=== PATIENT | female | born 2000 | race Hispanic/Latino ===

== ENCOUNTER 2024-04-01 21:54 | Emergency (ER) | payer OTHER, SELFPAY ==
--- OUTSIDE RECORDS SUMMARY | 2024-04-01 21:58 | XMS REPORT | Continuity of Care Document ---
Author Name Unknown Address [address] [facility] [address] [place] [address] [facility] Address [address] [facility] [address] [place] [address] Care Team Providers Care Grinder Set Up Operator Centerless Name Role Phone ROXANA CABRERA Primary Care Physician Unavailab CONG Loo Attending Clinician Unavailable ROXANA CABRERA Attending Clinician Unavailable SHANNAN SCHULTZ Attending Clinician Unavailable CORRINE STUBBS Attending Clinician Unavail able AKHIL WELCH Attending Clinician Unava ilCAROL ANN Thomas Attending Clinician Unavaila RIVAS Cleary Attending Clinician CONG WINTERS Admitting Clinician Unavailable ROXANA CABRERA Admitting Clinician Unavailable CAROL ANN SHARMA Admitting Clinician Unavaila ble Payers Payer Name Policy Type Policy Number Effective Date Expirati on Date Source Medicaid Traditional D [id number] 2021 00:00:00 2 W [id number] BCBS-OON 4 [id number] 2021 00:00:00 2 B [id number] 26 C NONE MEDICAID PENDING NA [facility] MEDICAID - HMO NA [facility] JIGNA CARE PENDING NA [facility] Problems Condition Name Condition Details Condition Category Status Onset Date Resolution Date Last Treatment Date Treating Clinician Comments Source Foreign body of right ear Foreign body in right ear Problem [facility] Viral infection Viral syndrome Problem Active [facility] Generalize d pain Body aches Problem Active [facility] Allergies, Adverse Reactions, Alerts Allergy Name Allergy Type Status Severity Reaction(s) Onset Date Inactive Date Treating Clinician Comments Source Penicill ins Drug Allergy Active U Not Specified 04-16 12:13: 27 [facility] Penicill ins Drug Allergy Active U Not Specified 06-14 11:30: 52 [facility] No Known Allergie s NA Active 06-14 11:26: 51 [facility] Penicill ins Allergy to substanc e Active 02-26 00:00: 00 [facility] Social History Social Habit Start Date Stop Date Quantity Comments Source Sex Assigned At 2000 00:00:00 2000 00:00:00 Female [facility] Medications Ordered Medication Name Filled Medication Name Start Date Stop Date Current Medication? Ordering Clinician Indication Dosage Frequency Signature (SIG) Comments Components Source Tramadol Hcl ([id number] MG) 50 MG TAB Tramadol Hcl ([id number] MG) 50 MG TAB 02-26 19:25: 00 Yes 50 Q4HRS PRN PAIN [facility] Vital Signs Vital Name Observation Time Observation Value Comments S ource DBP 2023-04-16 13:38:00 95 mm[Hg] DBP 2023-04-16 13:08:00 94 mm[Hg] DBP 2023-04-16 12:21:00 128 mm[Hg] DBP 2023-04-16 12:13:00 123 mm[Hg] Procedures Procedure Date / Time Performed Performing Clinician Source UA COMPLETE W/CULTURE REFLEX 2019-09-20 00:00:00 [facility] URINE QUALITATIVE HCG 2019-09-20 00:00:00 [facility] CBCA W/PLT & AUTO DIFFERENTIAL 2019-09-20 00:00:00 [facility] COMPREHENSIVE METABOLIC PANEL 2019-09-20 00:00:00 [facility] LIPASE 2019-09-20 00:00:00 [facility] URINE CULTURE 2019-09-20 00:00:00 [facility] LACTIC ACID 2019-09-20 00:00:00 [facility] CT ABD & PELVIS WO CONTRAST 2019-09-20 00:00:00 [facility] Encounters Start Date/Time End Date/Time Encounter Type Admission Type Attending [facility] Care Facility Care Department Encounter ID Source 2022-02-17 18:27:23 Inpatient CONG WINTERS TW TW [id number] T 2022-01-31 18:49:07 [facility] [id number] [facility] 2022-01-02 08:46:09 [facility] [id number] [facility] 2021-12-26 14:07:42 Outpatient [facility] [id number] [facility] 2023-04-16 17:02:00 2023-04-16 20:31:00 Emergency Department Patient Visit [facility] [id number] [id number] 12:02:00 2023-04-16 15:31:00 Emergency 1 ROXANA CABRERA [facility] [id number] 2022-03-11 13:23:00 2022-03-11 13:23:00 Emergency E SHANNAN SCHULTZ TW TW [id number] TW 2022-02-28 15:51:00 2022-03-01 12:00:00 Outpatient CONG WINTERS [facility] TW [id number] TW 2022-02-26 22:37:00 2022-02-27 00:29:00 Emergency E SHANNAN SCHULTZ [facility] TW [id number] MHTW 2022-02-17 20:17:00 2022-02-18 18:00:00 Outpatient E CONG WINTERS MHTW MHTW [id number] MHTW 2021-12-27 15:40:00 2021-12-27 15:40:00 Outpatient CORRINE STUBBS [id number] [facility] 2021-12-26 00:00:00 2021-12-26 00:00:00 Outpatient AKHIL WELCH SERENE [id number] [facility] 2021-10-23 14:07:00 2021-10-23 14:07:00 Outpatient En[facility] [id number] [facility] 2021-10-23 08:07:00 2021-10-23 08:07:00 Outpatient 3 CAROL ANN SHARMA [facility] [id number] [facility] 2021-06-14 11:26:00 2021-06-14 15:04:00 Emergency 1 ROXANA CABRERA [facility] [id number] [facility] 2020-06-23 09:25:00 2020-06-23 11:45:00 Departed Emergency [facility] [id number] [facility] 2019-09-20 16:54:00 2019-09-20 22:26:00 Departed Emergency [facility] [id number] [facility] 2018-12-31 13:08:00 2018-12-31 14:40:00 Departed Emergency [facility] [id number] Results Test Description Test Time Test Comments Results Result Co mments Source [facility] HospitalWhite Blood [id number] 18:06:00* Test Item Value Reference Range Interpretation Comme nts White Blood Count (test code = 6690-2) 13.2 4.1-12.9 [facility] HospitalRed Blood [id number] 18:06:00* Test Item Value Reference Range Interpretation Comme nts Red Blood Count (test code = 789-8) 5.15 3.64-5.20 [facility] HospitalHemoglobin2019-11-12 18:06:00* Test Item Value Reference Range Interpretation Comme nts Hemoglobin (test code = 718-7) 14.7 10.6-15.6 [facility] HospitalHematocrit2019-11-12 18:06:00* Test Item Value Reference Range Interpretation Comme [facility] Hematocrit (test code = 44953-5) 43.9 32.0-45.9 [facility] Corpuscular [id number] 18:06:00* Test Item Value Reference Range Interpretation Comme [facility] Mean Corpuscular Volume (kya t code = 46441-2) 85.3 74.6-98.2 [facility] Corpuscular [id number] 18:06:00* Test Item Value Reference Range Interpretation Comme [facility] Mean Corpuscular Hemoglobin (test code = 32893-3) 28.6 24.3-33.8 [facility] Corpuscular Hgb Concent [id number] 18:06:00 * Test Item Value Reference Range Interpretation Comme [facility] Mean Corpuscular Hgb Concent Diff (test code = 47430-5) 33.6 32.0-36.0 [facility] HospitalRed Cell Distribution [id number] 18:06:00* Test Item Value Reference Range Interpretation Comme [facility] Red Cell Distribution Width (test code = 60672-5) 13.5 11.4-16.3 [facility] HospitalPlatelet [id number] 18:06:00* Test Item Value Reference Range Interpretation Comme [facility] Platelet Count (test code = 777-3) 374 168-441 [facility] Platelet Fnjsbd8323-09-24 18:06:00* Test Item Value Reference Range Interpretation Comme [facility] Mean Platelet Volume (test c ode = 47512-8) 7.9 6.8-10.2 [facility] HospitalGranulocytes (%)2019-09-20 18:06:00* Test Item Value Reference Range Interpretation Comme [facility] Granulocytes (%) (test code = 69826-2) 85.8 39.8-78. 1 [facility] HospitalLymphocytes %2019-09-20 18:06:00* Test Item Value Reference Range Interpretation Comme [facility] Lymphocytes % (test code = 736-9) 9.4 14.1-47.6 [facility] HospitalMonocytes %2019-09-20 18:06:00* Test Item Value Reference Range Interpretation Comme nts Monocytes % (test code = 5905-5) 4.4 3.8-11.6 [facility] HospitalEosinophils %2019-09-20 18:06:00* Test Item Value Reference Range Interpretation Comme nts Eosinophils % (test code = 713-8) 0.2 0.6-7.3 [facility] HospitalBasophils %2019-09-20 18:06:00* Test Item Value Reference Range Interpretation Comme nts Basophils % (test code = 44101-8) 0.2 0.0-2.0 [facility] HospitalGranulocytes #2019-09-20 18:06:00* Test Item Value Reference Range Interpretation Comme nts Granulocytes # (test code = 98195-2) 11.4 1.6-10.1 [facility] HospitalLymphocytes #2019-09-20 18:06:00* Test Item Value Reference Range Interpretation Comme nts Lymphocytes # (test code = 12754-1) 1.2 0.6-6.1 [facility] HospitalMonocytes #2019-09-20 18:06:00* Test Item Value Reference Range Interpretation Comme nts Monocytes # (test code = 742-7) 0.6 0.2-1.5 [facility] #2019-09-20 18:06:00* Test Item Value Reference Range Interpretation Comme nts Eosinophils # (test code = 711-2) 0.0 0.0-0.9 [facility] HospitalBasophils #2019-09-20 18:06:00* Test Item Value Reference Range Interpretation Comme nts Basophils # (test code = 61165-2) 0.0 0.0-0.2 [facility] HospitalManual Pfrmcmpzmbow2405-56-40 18:06:00* Test Item Value Reference Range Interpretation Comme nts Manual Differential (test co de = Manual Differential) NO [facility] Hospitalodium [id number] 18:06:00* Test Item Value Reference Range Interpretation Comme nts Sodium Level (test code = 2951-2) 136 135-144 [facility] Hospitalassium [id number] 18:06:00* Test Item Value Reference Range Interpretation Comme [facility] Potassium Level (test code = 2823-3) 3.8 3.5-5.1 [facility] HospitalChloride [id number] 18:06:00* Test Item Value Reference Range Interpretation Comme nts Chloride Level (test code = 2075-0) 99 101-111 [facility] HospitalCarbon Dioxide [id number] 18:06:00* Test Item Value Reference Range Interpretation Comme [facility] Carbon Dioxide Level (test c ode = 8-9) 27 22-32 [facility] HospitalAnion [id number] 18:06:00* Test Item Value Reference Range Interpretation Comme [facility] Anion Gap (test code = 41836-1) 13.8 10-20 [facility] HospitalGlucose Bemum6057-45-22 18:06:00* Test Item Value Reference Range Interpretation Comme [facility] Glucose Level (test code = 2345-7) 103 65-99 Prediabetes 100 to 125 mg/dlDiabetes 126 mg/dl or higher Prediabetes refers to individuals with plasma glucose levelsintermediate between those considered normal and thoseconsidered diabetic and is also referred to as impairedglucose tolerance (IGT) or impaired fasting glucose (IFG). [facility] HospitalBlood Urea Nscnczgu8468-88-58 18:06:00* Test Item Value Reference Range Interpretation Comme [facility] Blood Urea Nitrogen (test co de = 3094-0) 11 07-04 [facility] HospitalCreatinine2019-11-12 18:06:00* Test Item Value Reference Range Interpretation Comme [facility] Creatinine (test code = 2160-0) 0.7 0.44-1.00 [facility] HospitalEGFR [id number] 18:06:00* Test Item Value Reference Range Interpretation Comme nts EGFR Note (test code = 59395-7) 123.6 63.8-143.2 eGFR (Estimated Glomerular Filtration Rate) eGFR calculation value obtained using the [facility] Health Doctors HospitalQuadratic (MCQ) equation. The reportable reference range isrecommended to be greater than 60 ml/min/1.73m. This is anestimation of the patient's GFR and clinical correlation isrecommended. This eGFR calculation does not account for race. This resultmay differ from other equations available. [facility] HospitalCalcium Exwuf7889-72-57 18:06:00* Test Item Value Reference Range Interpretation Comme [facility] Calcium Level (test code = 16860-3) 9.2 8.9-10.3 [facility] HospitalAlbumin2019-11-12 18:06:00* Test Item Value Reference Range Interpretation Comme [facility] Albumin (test code = 1751-7) 4.2 3.5-5.0 [facility] HospitalTotal Nwoptmtat4685-11-10 18:06:00* Test Item Value Reference Range Interpretation Comme [facility] Total Bilirubin (test code = 1975-2) 0.6 0.2-1.2 [facility] HospitalAlkaline Xppvfdgtwng8824-09-01 18:06:00* Test Item Value Reference Range Interpretation Comme nts Alkaline Phosphatase (test c ode = 6768-6) 72 32-91 [facility] HospitalTotal Emuscuz7636-02-42 18:06:00* Test Item Value Reference Range Interpretation Comme [facility] Total Protein (test code = 2885-2) 8.3 6.5-8.1 [facility] Sp[facility] HospitalAlanine Aminotransferase (ALT/SGPT)2019-09-20 18:06:00* Test Item Value Reference Range Interpretation Comme [facility] Alanine Aminotransferase (AL T/SGPT) (test code = 1742-6) 16 7-55 [facility] Sp[facility] HospitalAspartate Amino Transf (AST/SGOT)2019-09-20 18:06:00 * Test Item Value Reference Range Interpretation Comme nts Aspartate Amino Transf (AST/ SGOT) (test code = 1920-8) 15 15-41 [facility] HospitalGlobulin2019-11-12 18:06:00* Test Item Value Reference Range Interpretation Comme nts Globulin (test code = 33102-4) 4.1 2.3-3.5 [facility] HospitalAlbumin/Globulin [id number] 18:06:00* Test Item Value Reference Range Interpretation Comme nts Albumin/Globulin Ratio (test code = 1759-0) 1.0 1.2-2.2 [facility] HospitalLipase2019-11-12 18:06:00* Test Item Value Reference Range Interpretation Comme nts Lipase (test code = 3040-3) 21 22-51 [facility] HospitalUrine Abzjzee4880-06-45 18:04:00* Test Item Value Reference Range Interpretation Comme nts Urine Culture (test code = 630-4) ESCHERICHIA COLI [facility] HCG, Zwnotgafzep6336-07-58 17:26:00* Test Item Value Reference Range Interpretation Comme [facility] Urine HCG, Qualitative (test code = 2106-3) NEGATIVE NEGATIVE If a negative result is obtained but issuspected, hCG levels may be too low or urine may be toodilute for detection. Another specimen should be collectedafter 48-72 hours and tested. If waiting is not medicallyadvisable, the test result should be confirmed with aquantitative hCG test.[facility] Kzhne4720-92-28 17:26:00* Test Item Value Reference Range Interpretation Comme [facility] Urine Color (test code = 26633-1) Tanya YELLOW Substances that cause abnormal urine color may affect thereadability of test pads on urinalysis reagent strips. Thesesubstances include visible levels of blood or bilirubin anddrugs containing dyes (e.g., Pyridium, Azo Gantrisin, AzoGantanol), nitrofurantion (Macrodantin, Furadantin), orriboflavin.[facility] HospitalUrine [id number] 17:26:00* Test Item Value Reference Range Interpretation Comme [facility] Urine Clarity (test code = 29551-9) Slightly cloudy CLEAR [facility] Qkpmlxu7799-20-51 17:26:00* Test Item Value Reference Range Interpretation Comme [facility] Urine Glucose (test code = 5792-7) NEGATIVE NEGATIVE [facility] Tjcqryqwx2228-04-79 17:26:00* Test Item Value Reference Range Interpretation Comme nts Urine Bilirubin (test code = 5770-3) NEGATIVE NEGATIVE [facility] Vauyisb5364-89-19 17:26:00* Test Item Value Reference Range Interpretation Comme nts Urine Ketones (test code = 5797-6) 20 NEGATIVE [facility] Specific [id number] 17:26:00* Test Item Value Reference Range Interpretation Comme nts Urine Specific [place] (test code = 5811-5) 1.023 1.002-1.030 [facility] [id number] 17:26:00* Test Item Value Reference Range Interpretation Comme nts Urine Blood (test code = 37483-7) SMALL NEGATIVE [facility] [id number] 17:26:00* Test Item Value Reference Range Interpretation Comme nts Urine pH (test code = 5803-2) 6 5.0-8.0 [facility] Bbrklmq2026-79-59 17:26:00* Test Item Value Reference Range Interpretation Comme nts Urine Protein (test code = 5804-0) 30 NEGATIVE [facility] Wzrthvshuidj2254-94-05 17:26:00* Test Item Value Reference Range Interpretation Comme nts Urine Urobilinogen (test cod e = 20340-2) NEGATIVE NEGATIVE [facility] Rddgljl0047-96-39 17:26:00* Test Item Value Reference Range Interpretation Comme nts Urine Nitrite (test code = 5802-4) POSITIVE NEGATIVE [facility] Leukocyte Jmyyftau3767-58-69 17:26:00* Test Item Value Reference Range Interpretation Comme nts Urine Leukocyte Esterase (te st code = 72925-1) 25 NEGATIVE [facility] [id number] 17:26:00* Test Item Value Reference Range Interpretation Comme nts Urine RBC (test code = 57121-5) 6-14 0-2 [facility] [id number] 17:26:00* Test Item Value Reference Range Interpretation Comme nts Urine WBC (test code = 80474-6) 15-30 0-5 "Urine Culture test was reflexed and added to this specimen"[facility] Squamous Epithelial [id number] 17:26:00* Test Item Value Reference Range Interpretation Comme nts Urine Squamous Epithelial Ce lls (test code = 18166-8) 6-14 0-5 [facility] HospitalUrine [id number] 17:26:00* Test Item Value Reference Range Interpretation Comme nts Urine Bacteria (test code = 31224-9) 3+ NEGATIVE "Urine Culture test was reflexed and added to this specimen"[facility] HospitalUrine [id number] 17:26:00* Test Item Value Reference Range Interpretation Comme nts Urine Mucus (test code = 60054-4) MANY NEGATIVE [facility]
[2024-04-01] MEDS ORDERED: HYDRALAZINE HCL 20 MG/ML VIAL ONE (23:58)
[2024-04-01 23:59] LABS: Absolute Basophils 0.1 K/uL (0-0.5); Absolute Eosinophils 0.1 K/uL (0-0.5); Absolute Lymphocytes (CBC) 3.4 K/uL (0.7-4.9); Absolute Monocytes 0.5 K/uL (0.1-1.3); Absolute Neutrophil 9.6 K/uL (1.8-8.0); Basophils % 0.8 % (0-1.3); Eosinophils % 0.6 % (0-4.4); Hematocrit 40.3 % (36.0-45.0); Hemoglobin 13.2 g/dL (12.0-15.0); Lymphocytes % 24.8 % (15.3-44.8); MCH 26.7 pg (27.0-35.0); MCHC 32.8 g/dL (32.0-36.0); MCV 81.4 fL (80-100); MPV 7.7 fL (7.6-11.3); Monocytes % 3.7 % (3.3-12.3); Neutrophils % 70.1 % (41.7-73.7); Platelets 367 thou/uL (152-406); RBC Red Blood Cell Count 4.95 M/uL (3.86-4.86); Red Cell Distribution Width 14.4 % (12.1-15.2)
[2024-04-02 00:06] LABS: Specific Gravity 1.028 (1.005-1.030); Urine Bacteria <20 /HPF (<20); Urine Bilirubin NEGATIVE (Negative); Urine Blood 1+ (Negative); Urine Clarity Extremely Turbid (Clear); Urine Color Light-Yellow (Yellow); Urine Culture Reflex Order NOT NEEDED; Urine Glucose NEGATIVE (Negative); Urine Ketones NEGATIVE (Negative); Urine Microscopic Reflex YN ORDER UMIC; Urine Mucus Slight /HPF (None Seen); Urine Nitrite NEGATIVE (Negative); Urine Protein TRACE (Negative); Urine Urobilinogen Normal (Normal); Urine pH 5.5 (5.0-7.0)
[2024-04-02 00:11] LABS: Specific Gravity 1.028 (1.005-1.030)
[2024-04-02 00:25] LABS: Anion Gap 9.9 mEq/L (5.0-15.0); Potassium 3.9 mEq/L (3.5-5.1); Troponin High Sensitivity 4.6 pg/mL (<58.9)
--- NOTE | 2024-04-02 00:47 | EDPHYS ---
Physician Documentation [facility] Name: Val Nuñez Age: 23 yrs Sex: Female : 2000 Arrival Date: 04/01/2024 Time: 21:54 Bed 14 Private MD: ED Physician Vika Miles HPI: 04/01 22:00 This 23 yrs old Female presents to ER via Unassigned with complaints of Chest kb Pain. 22:00 Pt reports chest pain to center upper chest that started 1 hour ago. States she had kb similar pain yesterday that went away. Reports shortness of breath. Denies abnormal nausea, vomiting. States she is 5-6 weeks so she has had nausea and vomiting related to that. . Historical: - Allergies: 22:06 PENICILLINS; kb - PMHx: 22:06 Hypertensive disorder; kb - Immunization history:: Adult Immunizations up to date. - Infectious Disease History:: Denies. - Social history:: Smoking status: Patient denies any tobacco usage or history of. ROS: 22:00 Constitutional: As per HPI kb Exam: 22:02 Constitutional: This is a well developed, well nourished patient who is awake, alert, kb and in no acute distress. Head/Face: Normocephalic, atraumatic. ENT: Moist Mucous membranes Cardiovascular: Regular rate Respiratory: Respirations even and unlabored. No increased work of breathing. Talking in full sentences Abdomen/GI: Soft, non-tender. No distention Skin: Warm, dry with normal turgor. Normal color. MS/ Extremity: Pulses equal, no cyanosis. Neurovascular intact. Full, normal range of motion. Neuro: Awake and alert, GCS 15, oriented to person, place, time, and situation. Moves all extremities. Normal gait. 04/02 00:06 ECG was reviewed by the Attending Physician. kb Vital Signs: 04/01 22:06 BP 149 / 104; Pulse 87; Resp 18; Pulse Ox 100% ; Weight 117.93 kg; Height 5 ft. 6 in. ; kb Pain 6/10; 22:34 Pain 5/10; cm10 04/02 00:05 BP 139 / 91; Pulse 80; Resp 16; Pulse Ox 99% on R/A; pf1 00:35 BP 113 / 65; Pulse 76; Resp 16; Temp 97.3; Pulse Ox 100% on R/A; Pain 3/10; pf1 04/01 22:06 Body Mass Index 41.96 (117.93 kg, 167.64 cm) 04/01 22:06 Pain Scale: Adult kb 22:34 Pain Scale: Adult cm10 00:35 Pain Scale: Adult pf1 MDM: 04/01 21:59 Patient medically screened. kb 22:02 Data reviewed: vital signs, nurses notes. kb 22:03 Differential diagnosis: acute [place], arrhythmia, GERD. 04/02 00:45 Management of patient was discussed with the following: Dr Miles. Counseling: I had a kb detailed discussion with the patient and/or guardian regarding the historical points, exam findings, and any diagnostic results supporting the discharge/admit diagnosis, lab results, radiology results, the need for outpatient follow up, an OB/Gyne specialist, to return to the emergency department if symptoms worsen or persist or if there are any questions or concerns that arise at home. ED course: Pt educated on importance of follow up with OB as soon as possible. Pt states she will call to schedule an appt next week. 04/01 22:04 Order name: Basic Metabolic Panel; Complete Time: 00:26 kb 04/01 22:04 Order name: CBC with Diff; Complete Time: 00:00 kb 04/01 22:04 Order name: Magnesium; Complete Time: 00: kb 04/01 22:04 Order name: NT PRO-BNP; Complete Time: 00:26 kb 04/01 22:04 Order name: Troponin HS; Complete Time: 00:26 kb 04/01 22:04 Order name: Urinalysis w/ reflexes; Complete Time: 00:21 kb 04/01 23:50 Order name: Test, Urine; Complete Time: 00:21 kb 04/01 22:04 Order name: XRAY Chest (1 view) 04/01 22:04 Order name: Cardiac monitoring; Complete Time: 23:53 kb 04/01 22:04 Order name: EKG - Nurse/Tech; Complete Time: 23:50 kb 04/01 22:04 Order name: IV Saline Lock; Complete Time: 23:50 kb 04/01 22:04 Order name: Labs collected and sent; Complete Time: 23:50 kb 04/01 22:04 Order name: O2 Per Protocol; Complete Time: 23:50 kb 04/01 22:04 Order name: O2 Sat Monitoring; Complete Time: 23:50 kb 04/02 00:00 Order name: Vital Signs; Complete Time: 00:04 kb EC:06 Rate is 82 beats/min. Rhythm is regular. QRS [place] is Normal. CO interval is normal at kb 146 msec. QRS interval is normal at 88 msec. QT interval is normal at 443 msec. Administered Medications: 00:52 CANCELLED (Inappropriate at this time): [id number] mg IVP once pf1 Disposition Summary: 04/02/24 00:47 Discharge Ordered Notes: Location: Home kb Condition: Stable kb Diagnosis - Chest pain, unspecified kb - Essential (primary) hypertension kb Followup: kb - With: Emergency Department - When: As needed - Reason: Worsening of condition Followup: kb - With: Private Physician - When: 2 - 3 days - Reason: Recheck today's complaints, Continuance of care, Re-evaluation by your physician Discharge Instructions: - Discharge Summary Sheet kb - Nonspecific Chest Pain, Adult, [id number] kb - Hypertension, Adult, Chlx-po-Yfts kb - Hypertension During , [id number] kb Forms: - Medication Reconciliation Form kb - Antibiotic Education kb - Prescription Opioid Use kb - Patient Portal Instructions kb - Leadership Thank You Letter kb Signatures: Dispatcher [employer] EDNY Cecille oCronado, REGIONAL CONTROLLER-C REGIONAL CONTROLLER-Fide [place], RN RN pf1 Karina Witt RN RN cm10 Corrections: (The following items were deleted from the chart) 04/01 22:06 22:06 Chest Single View+RAD.RAD.BRZ ordered. EDNY EDMS 22:07 22:07 Urinalysis+U.LAB.BRZ ordered. EDNY EDMS 22:08 22:06 Pulse 87bpm; Resp 18bpm; Pulse Ox 100%; 117.93 kg; Height 5 ft. 6 in.; BMI: 41.9; kb Pain 6/10, Adult; kb 23:50 23:50 Test, Urine+UC.LAB.BRZ ordered. EDNY EDMS 04/02 00:52 04/01 23:50 hydrALAZINE IVP 10 mg IVP once ordered. kb pf1 04/02 00:52 00:52 hydrALAZINE IVP 10 mg IVP once ordered. pf1 pf1
--- NOTE | 2024-04-02 00:47 | ER ---
Nurse's Notes [facility] Name: Val Nuñez Age: 23 yrs Sex: Female : 2000 Arrival Date: 04/01/2024 Time: 21:54 Bed 14 Private MD: Diagnosis: Chest pain, unspecified;Essential (primary) hypertension Presentation: 04/01 22:34 Chief complaint: Patient states: Chest pain onset yesterday, got worse 1hr ago. Pt cm10 states that the pain is to the center of her chest and describes it as someone sitting on her chest. Pain does not radiate. Coronavirus screen: Client denies travel out of the [place] in the last 14 days. At this time, the client does not indicate any symptoms associated with coronavirus-19. Ebola Screen: Patient denies travel to an Ebola-affected area in the 21 days before illness onset. No symptoms or risks identified at this time. Initial Sepsis Screen: Does the patient meet any 2 criteria? No. Patient's initial sepsis screen is negative. Does the patient have a suspected source of infection? No. Patient's initial sepsis screen is negative. Risk Assessment: Do you want to hurt yourself or someone else? Patient reports no desire to harm self or others. Onset of symptoms was March 31, 2024. 22:34 Method Of Arrival: Ambulatory cm10 22:34 Acuity: JHON 3 cm10 Triage Assessment: 22:36 General: Appears in no apparent distress. comfortable, Behavior is calm, cooperative. cm10 Pain: Complains of pain in chest Pain currently is 5 out of 10 on a pain scale. Quality of pain is described as heavy, pressure, Pain began 1 day ago. Neuro: No deficits noted. Level of Consciousness is awake, alert, obeys commands, Oriented to person, place, time, situation, Appropriate for age. Historical: - Allergies: 22:06 PENICILLINS; kb - PMHx: 22:06 Hypertensive disorder; kb - Immunization history:: Adult Immunizations up to date. - Infectious Disease History:: Denies. - Social history:: Smoking status: Patient denies any tobacco usage or history of. Screenin:35 [facility] ED Fall Risk Assessment (Adult) History of falling in the last 3 months, pf1 including since admission No falls in past 3 months (0 pts) Confusion or Disorientation No (0 pts) Intoxicated or Sedated No (0 pts) Impaired Gait No (0 pts) Mobility Assist Device Used No (0 pt) Altered Elimination No (0 pt) Score/Fall Risk Level 0 - 2 = Low Risk Oriented to surroundings, Maintained a safe environment, Educated pt \T\ family on fall prevention, incl call for assistance when getting out of bed, Assessed \T\ reinforced patient's understanding of fall precautions, Provided non-skid footwear, Hourly rounding (assess needs \T\ fall precautionary measures) done, Used ambulatory aids as needed (educated on \T\ assisted with), Used gait belt as appropriate. Abuse screen: Denies threats or abuse. Nutritional screening: No deficits noted. Tuberculosis screening: No symptoms or risk factors identified. Assessment: 23:35 General: Appears in no apparent distress. comfortable, obese, well groomed, well pf1 developed, Behavior is calm, cooperative, appropriate for age, quiet. 23:35 Pain: Complains of pain in chest Pain does not radiate. Pain currently is 4 out of 10 pf1 on a pain scale. Neuro: Level of Consciousness is awake, alert, obeys commands, Oriented to person, place, time, situation. Cardiovascular: Reports chest pain, shortness of breath, Capillary refill < 3 seconds Patient's skin is warm and dry. Respiratory: Reports shortness of breath Airway is patent Respiratory effort is even, unlabored, Respiratory pattern is regular, symmetrical, Breath sounds are clear bilaterally. GI: No deficits noted. No signs and/or symptoms were reported involving the gastrointestinal system. Abdomen is round non-distended. : No deficits noted. No signs and/or symptoms were reported regarding the genitourinary system. EENT: No deficits noted. No signs and/or symptoms were reported regarding the EENT system. Derm: No deficits noted. No signs and/or symptoms reported regarding the dermatologic system. 04/02 00:30 Reassessment: Patient appears in no apparent distress at this time. Patient and/or pf1 family updated on plan of care and expected duration. Pain level reassessed. Patient is alert, oriented x 3, equal unlabored respirations, skin warm/dry/pink. Patient states symptoms have improved. Vital Signs: 04/01 22:06 BP 149 / 104; Pulse 87; Resp 18; Pulse Ox 100% ; Weight 117.93 kg; Height 5 ft. 6 in. ; kb Pain 6/10; 22:34 Pain 5/10; cm10 04/02 00:05 BP 139 / 91; Pulse 80; Resp 16; Pulse Ox 99% on R/A; pf1 00:35 BP 113 / 65; Pulse 76; Resp 16; Temp 97.3; Pulse Ox 100% on R/A; Pain 3/10; pf1 04/01 22:06 Body Mass Index 41.96 (117.93 kg, 167.64 cm) kb 04/01 22:06 Pain Scale: Adult kb 22:34 Pain Scale: Adult cm10 00:35 Pain Scale: Adult pf1 ED Course: 04/01 21:58 Patient arrived in ED. mr 21:59 [facility] Coronado [facility] kb 21:59 Vika Miles MD is Attending Physician. kb 22:35 Triage completed. cm10 22:35 Arm band placed on Patient placed in waiting room. cm10 22:52 XRAY Chest (1 view) In Process Unspecified. EDMS 23:35 Client placed on continuous cardiac and pulse oximetry monitoring. NIBP monitoring pf1 applied. clinical research monitor on. 23:35 Patient has correct armband on for positive identification. Placed in gown. Bed in low pf1 position. Call light in reach. Side rails up X 1. 23:48 No provider procedures requiring assistance completed. Inserted saline lock: 22 gauge pf1 in right antecubital area, using aseptic technique. Blood collected. 23:48 Initial lab(s) drawn, by me, sent to lab. Urine collected: EKG done, by ED staff, pf1 reviewed by Cecille QUINN. 23:50 Basic Metabolic Panel Sent. pf1 23:50 CBC with Diff Sent. pf1 23:50 Magnesium Sent. pf1 23:50 NT PRO-BNP Sent. pf1 23:50 Troponin HS Sent. pf1 23:50 Urinalysis w/ reflexes Sent. pf1 23:53 O2 via room air. pf1 04/02 00:58 IV discontinued, intact, bleeding controlled, No redness/swelling at site. Pressure pf1 dressing applied. 01:00 Provided Education on: follow up. pf1 Administered Medications: 00:52 CANCELLED (Inappropriate at this time): [id number] mg IVP once pf1 Medication: 01:01 VIS not applicable for this client. pf1 Outcome: 00:47 Discharge ordered by . armando 01:00 Discharged to home ambulatory, with family, pf1 01:00 Condition: improved 01:00 Discharge instructions given to patient, Instructed on discharge instructions, follow up and referral plans. Demonstrated understanding of instructions, follow-up care, 01:01 Patient left the ED. pf1 Signatures: Dispatcher [employer] EDRI Cecille Coronado, KYREE-C ATM TECHNICIAN-Yumiko Cullen, Reg Reg mr Fide [place], RN RN pf1 Karina Witt RN RN cm10
[2024-04-02 01:37] VITALS: BP 113/65; TEMP 97.3; O2SAT 100
--- NOTE | 2024-04-03 10:52 | RAD REPORT ---
EXAM DESCRIPTION: RAD - Chest Single View - 04/01/2024 10:51 pm CLINICAL HISTORY: The patient is 23 years old and is Female; Chest pain TECHNIQUE: Frontal view of the chest. COMPARISON: None FINDINGS: LUNGS: No discrete focal consolidation. PLEURAL SPACE: No appreciable pleural effusion or pneumothorax. MEDIASTINUM: Prominence of the cardiomediastinal silhouette, likely exaggerated secondary to portab le technique, lordotic positioning, and patient body habitus. BONES/JOINTS: No acute osseous abnormality. IMPRESSION: No acute findings in the chest. Electronically signed by: Ezio Merritt MD 04/01/2024 11:58 PM CDT RP Due to temporary technical issues with the PACS/Fluency reporting system, reports are being signed by the in house radiologists without review as a courtesy to insure prompt reporting. The interpreting radiologist is fully responsible for the content of the report.
--- NOTE | 2024-04-05 14:25 | EKG ---
Test Date: 2024-04-01 Test Time: 23:50:13 Embedded Linux Engineer: LAVERNE MEASUREMENT RESULTS: Intervals: Rate: 82 NV: 146 QRSD: 88 QT: 380 QTc: 443 [place]: P: 17 NV: 146 QRS: 37 T: 39 INTERPRETIVE STATEMENTS: Normal sinus rhythm Normal ECG No previous ECG available for comparison Electronically Signed On 04-05-24 14:15:08 CDT by Brian Veras
== END 2024-04-02 01:01 | disposition home or self-care (01) ==
LOC: ER 21:54
DX: O16.1 Unspecified maternal hypertension, first trimester (principal); Z3A.01 Less than 8 weeks gestation of pregnancy; Z88.0 Allergy status to penicillin
CPT/HCPCS: 36415; 71045; 80048; 81001; 81025; 83735; 83880; 84484; 85025; 93005; 99285; J0360